=== PATIENT | male | born 1990 | race African-American/Black ===

== ENCOUNTER 2018-04-20 21:35 | Emergency (ER) | payer OTHER ==
[2018-04-20] MEDS ORDERED: Albuterol 2.5 MG/3 ML NEB.SOL* (0.083%) INH ONE (21:57)
[2018-04-20] MEDS ORDERED: predniSONE TAB* 20 MG PO ONE (21:58)
--- NOTE | 2018-04-20 22:16 | ED ---
Asthma - HPI Summary HPI Summary: 27-year-old male presents with cough and shortness breath for the past 4 days. He states he has history asthma. He was on Advair and albuterol but has not been out for a while as he had not had any symptoms. He admits to a productive cough. He states that everyone else was sick a week ago and then he got sick. He denies any fevers. Denies any sore throat. Denies abdominal pain. He has coughed so hard he has vomited. No chest pain. Is a smoker. Denies any pain or swelling in his calf muscles. He admits to sinus congestion that has not gotten any worse. - History of Current Complaint Chief Complaint: EDAsthma Stated Complaint: SOB/LABORED BREATHING/ASTMA Time Seen by Provider: 04/20/18 21:47 Pain Intensity: 9 - Allergy/Home Medications Allergies/Adverse Reactions: Allergies Allergy/AdvReac Type Severity Reaction Status Date / Time No Known Allergies Allergy Verified 04/20/18 21:41 PMH/Surg Hx/FS Hx/Imm Hx Endocrine/Hematology History: Denies: Hx Anticoagulant Therapy Respiratory History: Reports: Hx Asthma Denies: Hx Chronic Obstructive Pulmonary Disease (COPD) - pt does smoke Infectious Disease History: No Infectious Disease History: Denies: Traveled Outside the [place] in Last 30 Days - Family History Known Family History: Positive: Respiratory Disease - Social History Alcohol Use: Rare Substance Use Type: Reports: Marijuana Substance Use Comment - Amount & Last Used: daily Smoking Status (MU): Never Smoked Tobacco Review of Systems Negative: Fever Negative: Chest Pain Positive: Shortness Of Breath, Cough Negative: Abdominal Pain All Other Systems Reviewed And Are Negative: Yes Physical Exam Triage Information Reviewed: Yes Vital Signs On Initial Exam: Initial Vitals Temp Pulse Resp BP Pulse Ox 98.1 F 86 20 132/80 98 04/20/18 21:37 04/20/18 21:37 04/20/18 21:37 04/20/18 21:37 04/20/18 21:37 Vital Signs Reviewed: Yes Appearance: Positive: Well-Appearing Skin: Positive: Warm, Dry Head/Face: Positive: Normal Head/Face Inspection Eyes: Positive: Normal, EOMI, PHILOMENA, Conjunctiva Clear ENT: Positive: Normal ENT inspection, Pharynx normal, TMs normal Respiratory/Lung Sounds: Positive: Breath Sounds Present, Wheezes Cardiovascular: Positive: Normal, RRR Abdomen Description: Positive: Nontender, Soft Bowel Sounds: Positive: Present Musculoskeletal: Positive: Normal Neurological: Positive: Normal Psychiatric: Positive: Normal Diagnostics - Vital Signs Vital Signs Temp Pulse Resp BP Pulse Ox 04/20/18 22:12 66 20 99 04/20/18 21:37 98.1 F 86 20 132/80 98 - Laboratory Lab Statement: Any lab studies that have been ordered have been reviewed, and results considered in the medical decision making process. - Radiology chest Xray Interpretation: No Acute Changes Radiology Interpretation Completed By: ED Physician Re-Evaluation - Re-Evaluation First Eval Re-Evaluation Time: 22:42 Change: Unchanged Comment: lungs CTA after treatment but patient states feels same Asthma Course/Dx - Course Course Of Treatment: 27-year-old male presents with cough and shortness breath for the past 4 days. He states he has history asthma. He was on Advair and albuterol but has not been out for a while as he had not had any symptoms. He admits to a productive cough. He states that everyone else was sick a week ago and then he got sick. He denies any fevers. Denies any sore throat. Denies abdominal pain. He has coughed so hard he has vomited. No chest pain. Is a smoker. Denies any pain or swelling in his calf muscles. He admits to sinus congestion that has not gotten any worse. On exam has wheezing present. Pharynx normal. Abdomen soft nontender. Gave breathing treatment and prednisone. Chest x-ray read by me as normal. discussed with patient that lungs sound better after treatment but feels same. offered to do another breathing treatment but patient states just wants inhaler to go home with an inhaler and does not want further treatment. will have restart advair to use when sick. told to follow up with primary. patient understand and agrees with plan. - Diagnoses Differential Diagnosis/HQI/PQRI: Positive: Acute Asthma, Bronchitis, Pneumonia Provider Diagnoses: Asthma, Bronchitis Discharge - Sign-Out/Discharge Documenting (check all that apply): Patient Departure - Discharge Plan Condition: Good Disposition: HOME Prescriptions: Albuterol HFA INHALER* [Ventolin HFA Inhaler*] 1 puff INH Q6H PRN #1 mdi PRN Reason: Cough Fluticasone-Salmeterol 100-50* [Advair Diskus 100-50*] 1 puff INH BID #1 diskus guaiFENesin/CODIEN 100MG-10MG* [Robitussin AC 100Mg-10Mg*] 5 ml PO Q6H PRN #100 ml MDD 20ml PRN Reason: Cough predniSONE TAB* [Deltasone TAB*] 50 mg PO DAILY #4 tab Patient Education Materials: Asthma (ED) Referrals: No Primary Care Phys,NOPCP [Primary Care Provider] - Additional Instructions: Use inhaler up to two puffs every 4 hours for cough and wheezing Take steroid once a day for 4 more days starting tomorrow take advair twice a day for 2 more days after symptoms resolve, if symptoms return restart advair take robitussin every 6 hours for cough as needed Take Tylenol or ibuprofen for pain every 6 hours Follow up with primary within 5 days Return to ED if develop severe shortness of breath, worsening chest pain, or any new or worsening symptoms - Billing Disposition and Condition Condition: GOOD Disposition: Home
[2018-04-20] MEDS ORDERED: guaiFENesin/CODIEN 100MG-10MG* 5 ML UDC PO ONE (22:32)
[2018-04-20] MEDS ORDERED: A lbuterol Hfa (PREPAK) 1 MDI - ED TAKE HOME DISPENSING ONLY INHH ONE (22:32)
[2018-04-20 22:53] VITALS: BP 126/79
--- NOTE | 2018-04-21 07:53 | RAD ---
HISTORY: cough COMPARISONS: None VIEWS: 4: Frontal dual-energy and lateral views of the chest. FINDINGS: CARDIOMEDIASTINAL SILHOUETTE: The cardiomediastinal silhouette is normal. KELVIN: The kelvin are normal. PLEURA: The costophrenic angles are sharp. No pleural abnormalities are noted. LUNG PARENCHYMA: The lungs are clear. ABDOMEN: The upper abdomen is clear. There is no subphrenic gas. BONES AND SOFT TISSUES: No bone or soft tissue abnormalities are noted. OTHER: None. IMPRESSION: NO ACTIVE CARDIOPULMONARY DISEASE. R0
== END 2018-04-20 22:52 | disposition home or self-care (01) ==
LOC: ED 21:35
DX: J45.909 Unspecified asthma, uncomplicated (principal); J40 Bronchitis, not specified as acute or chronic; R05 Cough; R06.02 Shortness of breath
CPT/HCPCS: 71046; 87070; 87077; 87205; 99282; A9270-GY; J7512

== ENCOUNTER 2018-11-19 21:57 | Emergency (ER) | payer OTHER ==
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
[2018-11-19] MEDS ORDERED: Tetan/Diph/Pertus SYR(Tdap)* 0.5 ML SYR(BOOSTRIX) use SYR IM ONE (22:58)
[2018-11-19 23:56] VITALS: BP 158/79
== END 2018-11-19 23:35 | disposition home or self-care (01) ==
LOC: ED 21:57
DX: S71.011A Laceration without foreign body, right hip, initial encounter (principal); W26.0XXA Contact with knife, initial encounter; J45.909 Unspecified asthma, uncomplicated
CPT/HCPCS: 12002; 90471; 90715; 99282